=== PATIENT | male | born 1985 | race Two or more races ===

== ENCOUNTER 2020-07-14 12:52 | Day surgery (SDC) | payer OTHER ==
[~2020-07-14 12:52] MED LIST: BUPIVACAINE 0.5% PF 30 ML VIAL ONE; EPINEPHrine 1 MG/ML AMP ONE; LIDOCAINE-MPF 2% 5 ML VIAL ONE; PROPOFOL 200 MG/20 ML VIAL IVP ONE; ceFAZolin 2 GM/50 ML 2 GM/50 ML BAG IV ONE
[2020-07-14] MEDS ORDERED: LACTATED RINGERS 1,000 ML IV ONE ×2 (13:15→15:26)
[2020-07-14] MEDS ORDERED: BUPIVACAINE 0.25% PF 30 ML VIAL SUBQ ONE (13:21)
[2020-07-14] MEDS ORDERED: BUPIVACAINE 0.25% PF 30 ML VIAL ONE (13:32)
[2020-07-14] MEDS ORDERED: HYDROmorphone 0.5 MG/0.5 ML SYRINGE IVP PRN (13:34)
[2020-07-14] MEDS ORDERED: ONDANSETRON 4 MG/2 ML VIAL IVP PRN ×2 (13:34→15:24)
[2020-07-14] MEDS ORDERED: METOCLOPRAMIDE 10 MG/2 ML VIAL IVP PRN (13:34)
[2020-07-14] MEDS ORDERED: MORPHINE 2 MG/ML CARPUJECT IVP PRN (13:34)
[2020-07-14] MEDS ORDERED: ePHEDrine 50 MG/ML VIAL IVP PRN (13:34)
[2020-07-14] MEDS ORDERED: NALOXONE 0.4 MG/ML VIAL IVP PRN (13:34)
[2020-07-14] MEDS ORDERED: fentaNYL 100 MCG/2 ML VIAL IVP PRN (13:34)
[2020-07-14] MEDS ORDERED: ATROPINE ABBOJECT 1 MG/10 ML SYRINGE IVP PRN (13:34)
[2020-07-14] MEDS ORDERED: fentaNYL 100 MCG/2 ML VIAL ONE (13:58)
[2020-07-14] MEDS ORDERED: LACTATED RINGERS 1,000 ML IV SCH (14:00)
[2020-07-14] MEDS ORDERED: ONDANSETRON 4 MG/2 ML VIAL ONE (14:17)
[2020-07-14] MEDS ORDERED: DEXAMETHASONE 4 MG/ML VIAL ONE (14:17)
--- NOTE | 2020-07-14 15:14 | ANESTHESIA ---
Pre-Anesthesia VS, & Labs - Diagnosis RIght achilles tendon rupture - Procedure right achilles tendon repair Vital Signs: Temp Pulse Resp BP Pulse Ox 37 C 78 16 134/87 H 100 07/14/20 13:00 07/14/20 13:00 07/14/20 13:00 07/14/20 13:00 07/14/20 13:00 Height: 5 ft 9 in Weight (kg): 90.72 kg Body Mass Index: 29.5 BMI Classification: Overweight - NPO >8 hours Home Medications and Allergies Home Medications: Ambulatory Orders Adalimumab [Humira] 40 mg SQ 07/10/20 Active Medications Atropine Sulfate (Atropine Abboject 1 Mg/10 Ml Syringe) 0.5 mg IVP Q5M PRN PRN Reason: Bradycardia Stop: 07/15/20 13:34 Ephedrine Sulfate (Ephedrine 50 Mg/Ml Vial) 10 mg IVP Q5M PRN PRN Reason: HYPOTENSION Stop: 07/15/20 13:34 Fentanyl (Fentanyl 100 Mcg/2 Ml Vial) 25 - 50 mcg IVP Q5M PRN PRN Reason: BREAKTHROUGH PAIN (2nd Choice) Stop: 07/15/20 13:34 Hydromorphone HCl (Hydromorphone 0.5 Mg/0.5 Ml Syringe) 0.2 - 0.6 mg IVP Q5M PRN PRN Reason: PAIN (First Choice) Stop: 07/15/20 13:34 Lactated Ringer's (Lr) 1,000 mls @ 100 mls/hr IV .Q10H MARTINA Stop: 07/14/20 23:59 Metoclopramide HCl (Metoclopramide 10 Mg/2 Ml Vial) 10 mg IVP Q6HR PRN PRN Reason: N/V not relieved by Zofran Morphine Sulfate (Morphine 2 Mg/Ml Carpuject) 2 - 4 mg IVP Q5M PRN PRN Reason: PAIN (3rd Choice) Stop: 07/15/20 13:34 Naloxone HCl (Naloxone 0.4 Mg/Ml Vial) 0.1 mg IVP Q2M PRN PRN Reason: RESP RATE <8 Stop: 07/15/20 13:34 Ondansetron HCl (Ondansetron 4 Mg/2 Ml Vial) 4 mg IVP ONCE PRN PRN Reason: N/V (First Choice) Stop: 07/15/20 13:34 Adalimumab [Humira] 40 mg SQ 07/10/20 Allergies/Adverse Reactions: Allergies Allergy/AdvReac Type Severity Reaction Status Date / Time Sulfa (Sulfonamide AdvReac Unknown Verified 07/13/20 13:27 Antibiotics) Anes History & Medical History - Anesthetic History Anesthesia Complications: reports: No previous complications Family history of Anesthesia Complications: Denies Family history of Malignant Hyperthermia: Denies - Medical History Cardiovascular: reports: None Pulmonary: reports: None Gastrointestinal: reports: None Urinary: reports: None Musculoskeletal: reports: Other Endocrine/Autoimmune: reports: None Skin: reports: Psoriasis Exam General: Alert, Oriented x3, Cooperative, No acute distress Dental: WNL Mouth Opening: Greater than 4 Fingerbreadths Neck Mobility: Normal Mallampati classification: II Thyromental Distance: 4-6 cm Respiratory: Lungs clear, Normal breath sounds, No respiratory distress, No accessory muscle use Cardiovascular: Regular rate, Normal S1, Normal S2, No murmurs Cognitive Status: Within normal limits Plan Anesthesia Type: General Consent for Procedure(s) Verified and Reviewed: Yes Code Status: Attempt Resuscitation ASA classification: 2-Mild systemic disease Is this case an emergency?: No
[2020-07-14] MEDS ORDERED: oxyCODONE 5 MG TABLET PO PRN (15:24)
--- NOTE | 2020-07-14 15:29 | OPERATIVE REPORT ---
Operative Report - Other Other Information/Narrative: Date of Surgery: 14 July 2020 Pre-Op Diagnosis: Right mid substance Achilles tendon tear with early healing in an elongated position Procedure: Right Achilles tendon repair with shortening Postop Diagnosis: Same Primary Surgeon: Sandeep Philip Secondary Surgeon: None Complications: None Tourniquet Time: 61 minutes EBL: 5 cc Implants: #2 FiberWire x2 Postoperative Protocol: Splint in full plantarflexion for 2 weeks. At the 2- week visit with it will be removed and he will begin the [place] protocol at our clinic Indication For Surgery: 34-year-old male sustained an Achilles tendon rupture while skateboarding 6 weeks ago. He had a delayed presentation and was in my clinic after 4 weeks. The tendon had begun to heal in an elongated position and his resting tension was off as well as plantar flexion strength. Surgery was indicated to restore the proper length relationship of the Achilles and preserve power of ankle plantarflexion. The risks, benefits, and alternatives were discussed. Risks include pain, bleeding, infection, damage to nearby structures, numbness, lack of symptom relief, implant complications, nonunion, need for further surgery, DVT, PE, stroke, and . Written consent was obtained. Procedure in Detail: The patient was met in the pre-operative hold area on the day of the procedure. The operative extremity was signed and questions were answered. The patient was brought to the operating room and a general anest hetic was administered. Prone position was used and all bony prominences were padded. Standard prepping and draping was performed. A time out confirmed patient identification, laterality, procedure, allergies, antibiotics, and images. An Esmarch was used to exsanguinate the limb and the tourniquet was elevated to 250 mmHg. A longitudinal incision was made 1 cm to the midline. Careful dissection was performed down to the peritenon. Scissors were used the laterally and the sural nerve was not seen within the surgical field. The peritenon was split longitudinally and the area of prior tear was identified. I had measured on the MRI 5 cm up from the insertion and a gap of approximately 2 cm. I was able to identify these landmarks within his healing tendon. I then transected the ten don at the 5 cm apolinar and excised 2 cm of the healing scar tissue. This tissue was of low quality as expected. Deep portion of the peritenon was then pie crusted to allow for mobility later. I then used a FiberWire stitch in the proximal remnant with 5 Krackow sutures up in 5 Krakw sutures down. I then used the same technique and the distal remnant as well. A free needle was then used to create the gift box and the sutures were passed through the repair site across to the other side in a position beyond the other Krackow sutures. Tension was then pulled to reduce the tear and the knots were tied. The repair was then oversewn with 0 Vicryl in a running fashion and tied on the deep surface. The wound was then irrigated copiously and closed in a layered fashion with a running Vicryl in the peritenon, 2-0 Vicryl in the dermis, and 3-0 nylon in the skin. A well-padded splint was applied. The patient was awakened and transferred to the recovery room.
[2020-07-14] MEDS ORDERED: KETOROLAC 15 MG/ML VIAL IVP PRN (15:55)
[2020-07-14] MEDS ORDERED: ACETAMINOPHEN 325 MG TABLET PO PRN (15:56)
[2020-07-14] MEDS ORDERED: ACETAMINOPHEN 1,000 MG/100 ML 100 ML IV ONE ×2 (15:58→16:09)
[2020-07-14] MEDS ORDERED: oxyCODONE 5 MG TABLET ONE (16:33)
[2020-07-14 16:39] VITALS: BP 100/65
--- NOTE | 2020-07-14 16:39 | ANESTHESIA POST OP EVALUATION ---
Anesthesia Post Eval - Post Anesthesia Eval Vitals: Last Vital Signs Temp 36.1 C L 07/14/20 16:14 Pulse 63 07/14/20 16:30 Resp 12 07/14/20 16:30 BP 90/66 07/14/20 16:30 Pulse Ox 99 07/14/20 16:30 CV Function Including HR & BP: positive: Stable Pain Control: positive: Satisfactory Nausea & Vomiting: positive: Negative Mental Status: positive: Baseline Respiratory Status: Airway Patent Hydration Status: Satisfactory Anesthesia Complications: positive: None
== END 2020-07-14 12:53 | disposition home or self-care (01) ==
LOC: SDS 12:52
PROVIDERS: ATTEND Orthopaedic Surgery
DX: S86.011A Strain of right Achilles tendon, initial encounter (principal); E66.3 Overweight; Z68.29 Body mass index [BMI] 29.0-29.9, adult
CPT/HCPCS: 27650; A9270; J0131; J0690; J7120